=== PATIENT | female | born 1950 | race Caucasian/White ===

== ENCOUNTER 2021-02-13 14:06 | Inpatient (IN) ==
[2021-02-13] MEDS ORDERED: *HR* Dextrose 50 % in Water (Vial) 50 ML VIAL ONE (15:31)
[2021-02-13] MEDS ORDERED: *HR* Dextrose 50 % in Water (Vial) 50 ML VIAL IVP PRN (15:34)
[2021-02-13 16:01] LABS: Basophils # 0.1 K/mcL (0.0-0.2); Basophils % 0.8 %; Eosinophils # 0.3 K/mcL (0.0-0.6); Eosinophils % 2.9 %; Hematocrit 37.2 % (35.3-44.9); Hemoglobin 11.4 g/dL (11.5-15.4); Immature Granulocytes % 0.3 % (0-4); Lymphocytes # 0.4 K/mcL (0.6-4.6); Lymphocytes % 4.6 %; Mean Corpuscular HGB Conc 30.6 g/dL (31.6-35.5); Mean Corpuscular Volume 94.7 fL (83.0-100.0); Mean Platelet Volume 9.5 fL (9.4-12.4); Monocytes # 1.3 K/mcL (0.0-1.3); Neutrophils # 7.2 K/mcL (1.6-8.9); Platelet Count 322 K/mcL (140-400); Red Blood Count 3.93 M/mcL (3.82-4.97); Red Cell Distribution Width 15.8 % (11.5-14.5); Segmented Neutrophils % 77.4 %; White Blood Count 9.3 K/mcL (4.3-11.1)
[2021-02-13 16:12] LABS: Bilirubin,Urine Negative (Negative); Blood,Urine Negative (Negative); Clarity,Urine Clear (Clear); Color,Urine Yellow (Yellow); Glucose,Urine (UA) Normal (Normal); Ketones,Urine Negative (Negative); Leukocyte Esterase,Urine Negative (Negative); Nitrite,Urine Negative (Negative); Protein,Urine Negative (Neg-Trace); Specific Gravity,Urine 1.013 (1.010-1.025); Urobilinogen,Urine Normal (Normal)
[2021-02-13 16:17] LABS: Albumin 3.3 g/dL (3.5-5.7); Albumin/Globulin Ratio 0.8 (1.1-2.2); Bilirubin,Direct 0.6 mg/dL (0.0-0.2); Bilirubin,Indirect 0.5 mg/dL (0.0-1.0); Bilirubin,Total 1.1 mg/dL (0.3-1.0); Calcium 8.7 mg/dL (8.6-10.3); Globulin 4.1 g/dL (2.4-3.5); Total Protein 7.4 g/dL (6.4-8.9)
[2021-02-13] MEDS ORDERED: Vancomycin (wt based) 1,000 MG VIAL IVPB STA (18:29)
[2021-02-13] MEDS ORDERED: Piperacillin/Tazobactam 3.375 GM in 0.9 % Sodium Chloride Mini Bag 100 ML IVP ONE (18:30)
[2021-02-13] MEDS ORDERED: Vancomycin 2,000 MG/520 ML IV.SOLN IVPB ONE (18:37)
[2021-02-13] MEDS ORDERED: Naloxone 0.4 MG/ML INJ IVP PRN (21:21)
[2021-02-13 22:15] LABS: Phosphorous 4.4 mg/dL (2.7-4.5)
[2021-02-13] MEDS ORDERED: Dextrose Gel 15 GM/37.5 ML TUBE PO PRN ×2 (22:37)
[2021-02-13] MEDS ORDERED: D5% in Water 1,000 ML IVC PRN (22:37)
[2021-02-13] MEDS ORDERED: Insulin DETEMIR 100 UNIT/ML X5UNITS SUBQ SCH (22:45)
[2021-02-13] MEDS: *HR* Heparin 5,000 UNIT/ML VIAL SQ SCH (23:06)
[2021-02-13] MEDS: Furosemide 40 MG/4 ML VIAL IVP SCH (23:07)
[2021-02-14] MEDS: Insulin LISPRO 300 UNITS/3 ML VIAL SUBQ SCH ×4 (00:32→16:59)
[2021-02-14 04:06] LABS: Bilirubin,Urine Negative (Negative); Blood,Urine Moderate (Negative); Clarity,Urine Clear (Clear); Color,Urine Light-Yellow (Yellow); Glucose,Urine (UA) Normal (Normal); Ketones,Urine Negative (Negative); Leukocyte Esterase,Urine Negative (Negative); Nitrite,Urine Negative (Negative); Protein,Urine Trace mg/dL (Neg-Trace); Specific Gravity,Urine 1.013 (1.010-1.025); Urobilinogen,Urine Normal (Normal)
[2021-02-14 04:19] LABS: Sodium, Urine 44.5 mEq/L
[2021-02-14] MEDS: *HR* Heparin 5,000 UNIT/ML VIAL SQ SCH (05:37)
[2021-02-14 05:46] LABS: Basophils % 0.4 %; Eosinophils # 0.2 K/mcL (0.0-0.6); Eosinophils % 2.2 %; Hematocrit 34.8 % (35.3-44.9); Hemoglobin 11.2 g/dL (11.5-15.4); Immature Granulocytes % 0.3 % (0-4); Lymphocytes # 0.4 K/mcL (0.6-4.6); Lymphocytes % 3.6 %; Mean Corpuscular HGB Conc 32.2 g/dL (31.6-35.5); Mean Corpuscular Hemoglobin 29.9 pg (28.0-33.3); Mean Corpuscular Volume 92.8 fL (83.0-100.0); Mean Platelet Volume 9.3 fL (9.4-12.4); Monocytes # 1.3 K/mcL (0.0-1.3); Monocytes % 13.1 %; Neutrophils # 7.7 K/mcL (1.6-8.9); Platelet Count 296 K/mcL (140-400); Red Blood Count 3.75 M/mcL (3.82-4.97); Red Cell Distribution Width 15.9 % (11.5-14.5); Segmented Neutrophils % 80.4 %; White Blood Count 9.6 K/mcL (4.3-11.1)
[2021-02-14] MEDS: *HR* Dextrose 50 % in Water (Vial) 50 ML VIAL IVP PRN ×2 (05:56→12:01)
[2021-02-14 06:19] LABS: Albumin 3.1 g/dL (3.5-5.7); Albumin/Globulin Ratio 0.8 (1.1-2.2); Bilirubin,Total 1.1 mg/dL (0.3-1.0); Calcium 8.5 mg/dL (8.6-10.3); Globulin 3.8 g/dL (2.4-3.5); Potassium 3.8 mEq/L (3.5-5.1); Total Protein 6.9 g/dL (6.4-8.9)
[2021-02-14] MEDS: Furosemide 40 MG/4 ML VIAL IVP SCH ×2 (07:56→17:35)
[2021-02-14] MEDS ORDERED: Perflutren Lipid Microsphere 1.3 ML in 0.9 % Sodium Chloride 8.7 ML IVP PRN (08:13)
[2021-02-14] MEDS: amLODIPine 5 MG TABLET PO SCH (15:27)
[2021-02-14] MEDS ORDERED: *HR* Heparin 5,000 UNIT/ML VIAL IVP PRN ×2 (17:01)
[2021-02-14] MEDS ORDERED: Heparin 25,000UNIT/250ML 1/2NS 25,000 UNIT/250 ML IV.SOLN IVC SCH (17:15)
[2021-02-14] MEDS: Heparin 25,000UNIT/250ML 1/2NS 25,000 UNIT/250 ML IV.SOLN IVC SCH (17:35)
[2021-02-14] MEDS ORDERED: *HR* Rivaroxaban 10 MG TABLET PO SCH (18:00)
[2021-02-14] MEDS: cloNIDine HCL 0.1 MG TABLET PO SCH (20:14)
[2021-02-14] MEDS ORDERED: Insulin DETEMIR 100 UNIT/ML X5UNITS SUBQ SCH (21:00)
[2021-02-15 01:39] LABS: Basophils # 0.1 K/mcL (0.0-0.2); Basophils % 0.5 %; Eosinophils # 0.2 K/mcL (0.0-0.6); Eosinophils % 2.1 %; Hematocrit 33.9 % (35.3-44.9); Hemoglobin 10.5 g/dL (11.5-15.4); Immature Granulocytes % 0.6 % (0-4); Lymphocytes # 0.4 K/mcL (0.6-4.6); Lymphocytes % 4.7 %; Mean Corpuscular Hemoglobin 29.4 pg (28.0-33.3); Mean Platelet Volume 9.4 fL (9.4-12.4); Monocytes # 1.3 K/mcL (0.0-1.3); Monocytes % 13.4 %; Neutrophils # 7.3 K/mcL (1.6-8.9); Platelet Count 242 K/mcL (140-400); Red Blood Count 3.57 M/mcL (3.82-4.97); Red Cell Distribution Width 15.9 % (11.5-14.5); Segmented Neutrophils % 78.7 %; White Blood Count 9.3 K/mcL (4.3-11.1)
[2021-02-15 01:52] LABS: Heparin anti-factor XA UFH 1.72 IU/mL (0.30-0.70)
[2021-02-15 02:05] LABS: Albumin/Globulin Ratio 0.8 (1.1-2.2); Bilirubin,Direct 0.4 mg/dL (0.0-0.2); Bilirubin,Indirect 0.6 mg/dL (0.0-1.0); Calcium 8.3 mg/dL (8.6-10.3); Globulin 3.7 g/dL (2.4-3.5); Potassium 3.5 mEq/L (3.5-5.1); Total Protein 6.7 g/dL (6.4-8.9)
[2021-02-15 02:50] LABS: Activated Partial Thrombo Time > 360.0 Seconds (26.0-36.0)
[2021-02-15] MEDS: Furosemide 40 MG/4 ML VIAL IVP SCH ×2 (08:47→16:38)
[2021-02-15] MEDS: amLODIPine 5 MG TABLET PO SCH (08:47)
[2021-02-15] MEDS: Magnesium Oxide 400 MG TABLET PO SCH (08:48)
[2021-02-15] MEDS: Insulin LISPRO 300 UNITS/3 ML VIAL SUBQ SCH ×3 (08:48→16:34)
[2021-02-15] MEDS ORDERED: FELODIPINE 10 MG PO SCH (09:00)
[2021-02-15] MEDS: Simethicone 80 MG TAB.CHEW PO PRN ×2 (11:48→20:14)
[2021-02-15] MEDS: Heparin 25,000UNIT/250ML 1/2NS 25,000 UNIT/250 ML IV.SOLN IVC SCH ×2 (11:55→15:20)
[2021-02-15] MEDS: *HR* Rivaroxaban 10 MG TABLET PO SCH (16:38)
[2021-02-15] MEDS: Ondansetron 4 MG/2 ML VIAL IVP PRN (17:45)
[2021-02-15] MEDS: Doxycycline 100 MG CAPSULE PO SCH (20:14)
[2021-02-15] MEDS: cloNIDine HCL 0.1 MG TABLET PO SCH (20:14)
[2021-02-15] MEDS: Nystatin POWDER 30 GM BOTTLE TP SCH (23:28)
[2021-02-16 01:04] LABS: Albumin 2.9 g/dL (3.5-5.7); Albumin/Globulin Ratio 0.8 (1.1-2.2); Bilirubin,Direct 0.3 mg/dL (0.0-0.2); Bilirubin,Indirect 0.7 mg/dL (0.0-1.0); Calcium 8.4 mg/dL (8.6-10.3); Globulin 3.7 g/dL (2.4-3.5); Potassium 3.3 mEq/L (3.5-5.1); Total Protein 6.6 g/dL (6.4-8.9)
[2021-02-16 01:11] LABS: Basophils # 0.1 K/mcL (0.0-0.2); Basophils % 0.6 %; Eosinophils # 0.1 K/mcL (0.0-0.6); Eosinophils % 1.2 %; Hematocrit 33.4 % (35.3-44.9); Hemoglobin 10.3 g/dL (11.5-15.4); Immature Granulocytes % 0.7 % (0-4); Lymphocytes # 0.4 K/mcL (0.6-4.6); Lymphocytes % 5.2 %; Mean Corpuscular HGB Conc 30.8 g/dL (31.6-35.5); Mean Corpuscular Hemoglobin 29.2 pg (28.0-33.3); Mean Corpuscular Volume 94.6 fL (83.0-100.0); Mean Platelet Volume 9.4 fL (9.4-12.4); Monocytes % 12.7 %; Neutrophils # 6.5 K/mcL (1.6-8.9); Platelet Count 225 K/mcL (140-400); Red Blood Count 3.53 M/mcL (3.82-4.97); Red Cell Distribution Width 15.9 % (11.5-14.5); Segmented Neutrophils % 79.6 %; White Blood Count 8.1 K/mcL (4.3-11.1)
[2021-02-16] MEDS: Doxycycline 100 MG CAPSULE PO SCH ×2 (09:05→19:53)
[2021-02-16] MEDS: amLODIPine 5 MG TABLET PO SCH (09:05)
[2021-02-16] MEDS: Insulin LISPRO 300 UNITS/3 ML VIAL SUBQ SCH ×3 (09:05→17:17)
[2021-02-16] MEDS: Magnesium Oxide 400 MG TABLET PO SCH (09:05)
[2021-02-16] MEDS: Ondansetron 4 MG/2 ML VIAL IVP PRN ×2 (09:06→21:58)
[2021-02-16] MEDS: Furosemide 40 MG/4 ML VIAL IVP SCH ×2 (09:06→17:17)
[2021-02-16] MEDS: Nystatin POWDER 30 GM BOTTLE TP SCH ×2 (09:07→19:54)
[2021-02-16] MEDS: *HR* Rivaroxaban 10 MG TABLET PO SCH (17:17)
[2021-02-16] MEDS: Simethicone 80 MG TAB.CHEW PO PRN (17:23)
[2021-02-16] MEDS: cloNIDine HCL 0.1 MG TABLET PO SCH (19:53)
[2021-02-17 01:24] LABS: Basophils # 0.1 K/mcL (0.0-0.2); Basophils % 0.6 %; Eosinophils # 0.2 K/mcL (0.0-0.6); Eosinophils % 2.2 %; Hematocrit 34.6 % (35.3-44.9); Hemoglobin 10.5 g/dL (11.5-15.4); Immature Granulocytes % 0.8 % (0-4); Lymphocytes # 0.5 K/mcL (0.6-4.6); Lymphocytes % 5.5 %; Mean Corpuscular HGB Conc 30.3 g/dL (31.6-35.5); Mean Corpuscular Hemoglobin 29.1 pg (28.0-33.3); Mean Corpuscular Volume 95.8 fL (83.0-100.0); Mean Platelet Volume 8.9 fL (9.4-12.4); Monocytes # 1.1 K/mcL (0.0-1.3); Monocytes % 12.8 %; Platelet Count 220 K/mcL (140-400); Red Blood Count 3.61 M/mcL (3.82-4.97); Red Cell Distribution Width 15.9 % (11.5-14.5); Segmented Neutrophils % 78.1 %; White Blood Count 8.9 K/mcL (4.3-11.1)
[2021-02-17 01:44] LABS: Albumin/Globulin Ratio 0.8 (1.1-2.2); Bilirubin,Direct 0.3 mg/dL (0.0-0.2); Bilirubin,Indirect 0.6 mg/dL (0.0-1.0); Bilirubin,Total 0.9 mg/dL (0.3-1.0); Calcium 8.6 mg/dL (8.6-10.3); Globulin 3.8 g/dL (2.4-3.5); Potassium 3.3 mEq/L (3.5-5.1); Total Protein 6.8 g/dL (6.4-8.9)
[2021-02-17] MEDS: Doxycycline 100 MG CAPSULE PO SCH ×2 (08:09→19:32)
[2021-02-17] MEDS: Simethicone 80 MG TAB.CHEW PO PRN (08:09)
[2021-02-17] MEDS: Magnesium Oxide 400 MG TABLET PO SCH (08:09)
[2021-02-17] MEDS: Furosemide 40 MG/4 ML VIAL IVP SCH ×2 (08:10→17:04)
[2021-02-17] MEDS: Ondansetron 4 MG/2 ML VIAL IVP PRN (08:10)
[2021-02-17] MEDS: Insulin LISPRO 300 UNITS/3 ML VIAL SUBQ SCH ×3 (08:10→17:05)
[2021-02-17] MEDS: Nystatin POWDER 30 GM BOTTLE TP SCH ×2 (08:19→19:33)
[2021-02-17] MEDS: Acetaminophen 325 MG TABLET PO PRN (11:35)
[2021-02-17] MEDS: *HR* Rivaroxaban 10 MG TABLET PO SCH (17:04)
[2021-02-17] MEDS: *HR* OxyCODONE Immed Rel 5 MG TABLET PO PRN (17:04)
[2021-02-17] MEDS: cloNIDine HCL 0.1 MG TABLET PO SCH (19:32)
[2021-02-18 04:07] LABS: Basophils # 0.1 K/mcL (0.0-0.2); Basophils % 0.7 %; Eosinophils # 0.4 K/mcL (0.0-0.6); Eosinophils % 4.4 %; Hematocrit 35.1 % (35.3-44.9); Hemoglobin 10.6 g/dL (11.5-15.4); Immature Granulocytes % 1.2 % (0-4); Lymphocytes # 0.5 K/mcL (0.6-4.6); Lymphocytes % 5.7 %; Mean Corpuscular HGB Conc 30.2 g/dL (31.6-35.5); Mean Corpuscular Volume 95.9 fL (83.0-100.0); Mean Platelet Volume 9.2 fL (9.4-12.4); Monocytes % 12.3 %; Neutrophils # 6.4 K/mcL (1.6-8.9); Platelet Count 192 K/mcL (140-400); Red Blood Count 3.66 M/mcL (3.82-4.97); Red Cell Distribution Width 15.9 % (11.5-14.5); Segmented Neutrophils % 75.7 %; White Blood Count 8.4 K/mcL (4.3-11.1)
[2021-02-18 04:27] LABS: Albumin/Globulin Ratio 0.8 (1.1-2.2); Bilirubin,Direct 0.4 mg/dL (0.0-0.2); Bilirubin,Indirect 0.6 mg/dL (0.0-1.0); Calcium 8.8 mg/dL (8.6-10.3); Potassium 3.5 mEq/L (3.5-5.1)
[2021-02-18] MEDS: Magnesium Oxide 400 MG TABLET PO SCH (08:39)
[2021-02-18] MEDS: Doxycycline 100 MG CAPSULE PO SCH ×2 (08:40→20:34)
[2021-02-18] MEDS: Furosemide 40 MG/4 ML VIAL IVP SCH ×2 (08:40→19:52)
[2021-02-18] MEDS: Insulin LISPRO 300 UNITS/3 ML VIAL SUBQ SCH ×3 (08:40→19:53)
[2021-02-18] MEDS: Nystatin POWDER 30 GM BOTTLE TP SCH (08:45)
[2021-02-18] MEDS: *HR* OxyCODONE Immed Rel 5 MG TABLET PO PRN ×2 (08:48→17:54)
[2021-02-18] MEDS ORDERED: 0.9 % Sodium Chloride 250 ML IVC PRN (08:48)
[2021-02-18] MEDS ORDERED: *HR* Heparin 10,000 UNIT/10 ML VIAL IV PRN (08:48)
[2021-02-18] MEDS ORDERED: 0.9 % Sodium Chloride 1,000 ML PRIME SCH (09:00)
[2021-02-18 11:25] LABS: Hepatitis B Surface Antibody < 3.10 mIU/mL
[2021-02-18 11:35] LABS: Hepatitis B Surface Antigen Nonreactive (Nonreactive)
[2021-02-18 12:03] LABS: Hepatitis C Virus Antibody Nonreactive (Nonreactive)
[2021-02-18 12:05] LABS: Hepatitis A Antibody IgM Nonreactive (Nonreactive); Hepatitis B Core IgM Nonreactive (Nonreactive)
[2021-02-18] MEDS ORDERED: Lidocaine/EPI 1:100k 1% 50 ML VIAL ONE (15:10)
[2021-02-18] MEDS ORDERED: Heparin 1,000 UNITS/500 mL 500 ML ONE (15:10)
[2021-02-18] MEDS ORDERED: *HR* Heparin 5,000 UNIT/ML VIAL ONE (15:44)
[2021-02-18] MEDS ORDERED: *HR* Rivaroxaban 15 MG TABLET PO SCH (17:00)
[2021-02-18] MEDS: Insulin DETEMIR 100 UNIT/ML X5UNITS SUBQ SCH (20:33)
[2021-02-18] MEDS: cloNIDine HCL 0.1 MG TABLET PO SCH (20:34)
[2021-02-18] MEDS: Acetaminophen 325 MG TABLET PO PRN (20:39)
[2021-02-19] MEDS: Nystatin POWDER 30 GM BOTTLE TP SCH ×3 (01:09→20:10)
[2021-02-19] MEDS: *HR* OxyCODONE Immed Rel 5 MG TABLET PO PRN (05:34)
[2021-02-19 06:15] LABS: Calcium 8.9 mg/dL (8.6-10.3); Potassium 3.6 mEq/L (3.5-5.1)
[2021-02-19] MEDS ORDERED: *HR* Heparin 10,000 UNIT/10 ML VIAL IV PRN (07:20)
[2021-02-19] MEDS ORDERED: 0.9 % Sodium Chloride 250 ML IVC PRN (07:20)
[2021-02-19] MEDS ORDERED: 0.9 % Sodium Chloride 1,000 ML PRIME SCH (07:30)
[2021-02-19] MEDS: Doxycycline 100 MG CAPSULE PO SCH ×2 (08:19→20:02)
[2021-02-19] MEDS: Insulin LISPRO 300 UNITS/3 ML VIAL SUBQ SCH ×3 (08:19→18:29)
[2021-02-19] MEDS: Furosemide 40 MG/4 ML VIAL IVP SCH ×2 (08:19→18:29)
[2021-02-19] MEDS: Magnesium Oxide 400 MG TABLET PO SCH (08:19)
[2021-02-19] MEDS: cloNIDine HCL 0.1 MG TABLET PO SCH (20:02)
[2021-02-19] MEDS: Apixaban 5 MG TABLET PO SCH (20:02)
[2021-02-19] MEDS: Insulin DETEMIR 100 UNIT/ML X5UNITS SUBQ SCH (20:10)
[2021-02-19] MEDS: Simethicone 80 MG TAB.CHEW PO PRN (21:55)
[2021-02-20 05:40] LABS: Basophils # 0.1 K/mcL (0.0-0.2); Basophils % 0.7 %; Eosinophils # 0.3 K/mcL (0.0-0.6); Hematocrit 34.9 % (35.3-44.9); Hemoglobin 10.5 g/dL (11.5-15.4); Immature Granulocytes % 0.4 % (0-4); Lymphocytes # 0.6 K/mcL (0.6-4.6); Lymphocytes % 6.3 %; Mean Corpuscular HGB Conc 30.1 g/dL (31.6-35.5); Mean Corpuscular Hemoglobin 29.2 pg (28.0-33.3); Mean Corpuscular Volume 97.2 fL (83.0-100.0); Mean Platelet Volume 9.6 fL (9.4-12.4); Monocytes % 10.2 %; Neutrophils # 7.8 K/mcL (1.6-8.9); Platelet Count 158 K/mcL (140-400); Red Blood Count 3.59 M/mcL (3.82-4.97); Segmented Neutrophils % 79.4 %; White Blood Count 9.8 K/mcL (4.3-11.1)
[2021-02-20 06:01] LABS: Potassium 3.7 mEq/L (3.5-5.1)
[2021-02-20] MEDS: Insulin LISPRO 300 UNITS/3 ML VIAL SUBQ SCH ×4 (08:09→16:49)
[2021-02-20] MEDS ORDERED: *HR* Heparin 10,000 UNIT/10 ML VIAL IV PRN (08:13)
[2021-02-20] MEDS ORDERED: 0.9 % Sodium Chloride 250 ML IVC PRN (08:13)
[2021-02-20] MEDS ORDERED: 0.9 % Sodium Chloride 1,000 ML PRIME SCH (08:15)
[2021-02-20] MEDS: Furosemide 40 MG/4 ML VIAL IVP SCH ×2 (09:13→16:48)
[2021-02-20] MEDS: Magnesium Oxide 400 MG TABLET PO SCH (09:14)
[2021-02-20] MEDS: Apixaban 5 MG TABLET PO SCH ×2 (09:14→20:12)
[2021-02-20] MEDS: Nystatin POWDER 30 GM BOTTLE TP SCH ×2 (09:14→20:24)
[2021-02-20] MEDS: Doxycycline 100 MG CAPSULE PO SCH ×2 (09:14→20:12)
[2021-02-20] MEDS: Simethicone 80 MG TAB.CHEW PO PRN (20:11)
[2021-02-20] MEDS: cloNIDine HCL 0.1 MG TABLET PO SCH (20:12)
[2021-02-20] MEDS: Insulin DETEMIR 100 UNIT/ML X5UNITS SUBQ SCH (20:23)
[2021-02-21 04:07] LABS: Hematocrit 35.3 % (35.3-44.9); Hemoglobin 10.4 g/dL (11.5-15.4); Mean Corpuscular HGB Conc 29.5 g/dL (31.6-35.5); Mean Corpuscular Hemoglobin 28.7 pg (28.0-33.3); Mean Corpuscular Volume 97.5 fL (83.0-100.0); Mean Platelet Volume 9.7 fL (9.4-12.4); Platelet Count 161 K/mcL (140-400); Red Blood Count 3.62 M/mcL (3.82-4.97); Red Cell Distribution Width 16.3 % (11.5-14.5); White Blood Count 9.3 K/mcL (4.3-11.1)
[2021-02-21 04:26] LABS: Calcium 8.8 mg/dL (8.6-10.3); Potassium 3.9 mEq/L (3.5-5.1)
[2021-02-21] MEDS: Magnesium Oxide 400 MG TABLET PO SCH (08:08)
[2021-02-21] MEDS: Doxycycline 100 MG CAPSULE PO SCH ×2 (08:08→22:11)
[2021-02-21] MEDS: Apixaban 5 MG TABLET PO SCH ×2 (08:08→22:11)
[2021-02-21] MEDS: Furosemide 40 MG/4 ML VIAL IVP SCH ×2 (08:09→17:31)
[2021-02-21] MEDS: Nystatin POWDER 30 GM BOTTLE TP SCH ×2 (08:09→22:12)
[2021-02-21] MEDS: Insulin LISPRO 300 UNITS/3 ML VIAL SUBQ SCH ×3 (08:09→17:31)
[2021-02-21] MEDS ORDERED: Acetaminophen 325 MG TABLET PO PRN (11:22)
[2021-02-21] MEDS: *HR* OxyCODONE Immed Rel 5 MG TABLET PO PRN ×2 (12:28→22:12)
[2021-02-21] MEDS: Simethicone 80 MG TAB.CHEW PO PRN (22:12)
[2021-02-21] MEDS: cloNIDine HCL 0.1 MG TABLET PO SCH (22:12)
[2021-02-21] MEDS: Insulin DETEMIR 100 UNIT/ML X5UNITS SUBQ SCH (22:19)
[2021-02-22 06:49] LABS: Hematocrit 35.7 % (35.3-44.9); Hemoglobin 10.6 g/dL (11.5-15.4); Mean Corpuscular HGB Conc 29.7 g/dL (31.6-35.5); Mean Corpuscular Hemoglobin 28.9 pg (28.0-33.3); Mean Corpuscular Volume 97.3 fL (83.0-100.0); Mean Platelet Volume 9.4 fL (9.4-12.4); Platelet Count 162 K/mcL (140-400); Red Blood Count 3.67 M/mcL (3.82-4.97); Red Cell Distribution Width 16.1 % (11.5-14.5); White Blood Count 8.7 K/mcL (4.3-11.1)
[2021-02-22 07:03] LABS: Potassium 3.8 mEq/L (3.5-5.1)
[2021-02-22] MEDS ORDERED: 0.9 % Sodium Chloride 250 ML IVC PRN (07:16)
[2021-02-22] MEDS ORDERED: *HR* Heparin 10,000 UNIT/10 ML VIAL IV PRN (07:16)
[2021-02-22] MEDS: Doxycycline 100 MG CAPSULE PO SCH ×2 (07:56→20:38)
[2021-02-22] MEDS: Magnesium Oxide 400 MG TABLET PO SCH (07:56)
[2021-02-22] MEDS: Nystatin POWDER 30 GM BOTTLE TP SCH ×2 (07:57→20:41)
[2021-02-22] MEDS: Furosemide 40 MG/4 ML VIAL IVP SCH (07:57)
[2021-02-22] MEDS: Apixaban 5 MG TABLET PO SCH ×2 (07:57→20:38)
[2021-02-22] MEDS: Insulin LISPRO 300 UNITS/3 ML VIAL SUBQ SCH ×3 (07:57→18:03)
[2021-02-22] MEDS: *HR* OxyCODONE Immed Rel 5 MG TABLET PO PRN ×2 (08:02→18:03)
[2021-02-22] MEDS: Simethicone 80 MG TAB.CHEW PO PRN (08:08)
[2021-02-22] MEDS: Torsemide 20 MG TABLET PO SCH (18:03)
[2021-02-22] MEDS: cloNIDine HCL 0.1 MG TABLET PO SCH (20:38)
[2021-02-22] MEDS: Insulin DETEMIR 100 UNIT/ML X5UNITS SUBQ SCH (20:38)
[2021-02-23 03:13] LABS: Hematocrit 33.9 % (35.3-44.9); Hemoglobin 10.6 g/dL (11.5-15.4); Mean Corpuscular HGB Conc 31.3 g/dL (31.6-35.5); Mean Corpuscular Hemoglobin 30.1 pg (28.0-33.3); Mean Corpuscular Volume 96.3 fL (83.0-100.0); Mean Platelet Volume 9.8 fL (9.4-12.4); Platelet Count 147 K/mcL (140-400); Red Blood Count 3.52 M/mcL (3.82-4.97); Red Cell Distribution Width 16.2 % (11.5-14.5); White Blood Count 7.9 K/mcL (4.3-11.1)
[2021-02-23 03:34] LABS: Calcium 8.8 mg/dL (8.6-10.3); Potassium 3.8 mEq/L (3.5-5.1)
[2021-02-23] MEDS: Insulin LISPRO 300 UNITS/3 ML VIAL SUBQ SCH ×3 (07:47→16:58)
[2021-02-23] MEDS: Doxycycline 100 MG CAPSULE PO SCH ×2 (07:53→21:08)
[2021-02-23] MEDS: Magnesium Oxide 400 MG TABLET PO SCH (07:53)
[2021-02-23] MEDS: metOLazone 2.5 MG TABLET PO SCH (07:53)
[2021-02-23] MEDS: Apixaban 5 MG TABLET PO SCH ×2 (07:53→21:08)
[2021-02-23] MEDS: Torsemide 20 MG TABLET PO SCH ×2 (07:53→16:58)
[2021-02-23] MEDS: *HR* OxyCODONE Immed Rel 5 MG TABLET PO PRN (12:03)
[2021-02-23] MEDS: Nystatin POWDER 30 GM BOTTLE TP SCH (13:13)
[2021-02-23] MEDS: cloNIDine HCL 0.1 MG TABLET PO SCH (21:08)
[2021-02-23] MEDS: Insulin DETEMIR 100 UNIT/ML X5UNITS SUBQ SCH (21:09)
[2021-02-23] MEDS: Simethicone 80 MG TAB.CHEW PO PRN (21:15)
[2021-02-24 05:02] LABS: Hematocrit 32.5 % (35.3-44.9); Hemoglobin 10.2 g/dL (11.5-15.4); Mean Corpuscular HGB Conc 31.4 g/dL (31.6-35.5); Mean Corpuscular Hemoglobin 29.6 pg (28.0-33.3); Mean Corpuscular Volume 94.2 fL (83.0-100.0); Mean Platelet Volume 10.1 fL (9.4-12.4); Platelet Count 166 K/mcL (140-400); Red Blood Count 3.45 M/mcL (3.82-4.97); Red Cell Distribution Width 16.1 % (11.5-14.5); White Blood Count 6.4 K/mcL (4.3-11.1)
[2021-02-24 05:16] LABS: Calcium 8.9 mg/dL (8.6-10.3); Potassium 3.5 mEq/L (3.5-5.1)
[2021-02-24] MEDS: Nystatin POWDER 30 GM BOTTLE TP SCH ×3 (07:44→20:51)
[2021-02-24] MEDS: Magnesium Oxide 400 MG TABLET PO SCH (08:00)
[2021-02-24] MEDS: Doxycycline 100 MG CAPSULE PO SCH ×2 (08:00→20:50)
[2021-02-24] MEDS: Insulin LISPRO 300 UNITS/3 ML VIAL SUBQ SCH ×3 (08:00→15:45)
[2021-02-24] MEDS: metOLazone 2.5 MG TABLET PO SCH (08:00)
[2021-02-24] MEDS: Torsemide 20 MG TABLET PO SCH ×2 (08:00→15:41)
[2021-02-24] MEDS: Apixaban 5 MG TABLET PO SCH ×2 (08:00→20:50)
[2021-02-24] MEDS: Simethicone 80 MG TAB.CHEW PO PRN (18:50)
[2021-02-24] MEDS: cloNIDine HCL 0.1 MG TABLET PO SCH (20:50)
[2021-02-24] MEDS: Insulin DETEMIR 100 UNIT/ML X5UNITS SUBQ SCH (20:51)
[2021-02-25 03:47] LABS: Hematocrit 32.3 % (35.3-44.9); Hemoglobin 9.9 g/dL (11.5-15.4); Mean Corpuscular HGB Conc 30.7 g/dL (31.6-35.5); Mean Corpuscular Hemoglobin 29.1 pg (28.0-33.3); Mean Platelet Volume 10.2 fL (9.4-12.4); Platelet Count 162 K/mcL (140-400); Red Cell Distribution Width 16.1 % (11.5-14.5); White Blood Count 6.5 K/mcL (4.3-11.1)
[2021-02-25 03:54] LABS: Calcium 8.8 mg/dL (8.6-10.3); Potassium 3.3 mEq/L (3.5-5.1)
[2021-02-25] MEDS: Insulin LISPRO 300 UNITS/3 ML VIAL SUBQ SCH ×3 (07:42→16:46)
[2021-02-25] MEDS: Magnesium Oxide 400 MG TABLET PO SCH (07:42)
[2021-02-25] MEDS: Apixaban 5 MG TABLET PO SCH (07:42)
[2021-02-25] MEDS: Doxycycline 100 MG CAPSULE PO SCH (07:43)
[2021-02-25] MEDS: Nystatin POWDER 30 GM BOTTLE TP SCH (07:43)
[2021-02-25] MEDS: Torsemide 20 MG TABLET PO SCH ×2 (07:43→16:47)
[2021-02-25] MEDS: *HR* OxyCODONE Immed Rel 5 MG TABLET PO PRN (15:12)
[2021-02-25] MEDS: Simethicone 80 MG TAB.CHEW PO PRN (15:12)
[2021-02-25 15:34] LABS: Adenovirus Not Detected (Not Detect); Bordetella Pertussis Not Detected (Not Detect); Chlamydophila pneumoniae Not Detected (Not Detect); Coronavirus 229E Not Detected (Not Detect); Coronavirus HKU1 Not Detected (Not Detect); Coronavirus NL63 Not Detected (Not Detect); Coronavirus OC43 Not Detected (Not Detect); Human Metapneumovirus Not Detected (Not Detect); Human Rhinovirus/Enterovirus Not Detected (Not Detect); Influenza A Subtype 2009 H1 Not Detected (Not Detect); Influenza B Not Detected (Not Detect); Mycoplasma pneumoniae Not Detected (Not Detect); Parainfluenza Virus 1 Not Detected (Not Detect); Parainfluenza Virus 2 Not Detected (Not Detect); Parainfluenza Virus 3 Not Detected (Not Detect); Parainfluenza Virus 4 Not Detected (Not Detect); Respiratory Syncytial Virus Not Detected (Not Detect); SARS-CoV-2 Not Detected (Not Detect)
[2021-02-25 16:14] VITALS: BP 105/69
== END 2021-02-25 18:14 | DRG 291 ==
LOC: EMEROOARM 14:06 → 2ANU 14:06 → SUATTDRO 19:20 → 2ANU 20:51 → SUATTDRO 02-14 19:02
PROVIDERS: ADMIT Internal Medicine; ATTEND Family Medicine

== ENCOUNTER 2021-03-13 18:38 | Inpatient (IN) ==
[2021-03-13 19:11] LABS: Basophils % 0.4 %; Eosinophils # 0.3 K/mcL (0.0-0.6); Eosinophils % 3.3 %; Hematocrit 35.5 % (35.3-44.9); Hemoglobin 10.9 g/dL (11.5-15.4); Immature Granulocytes % 0.5 % (0-4); Lymphocytes # 0.8 K/mcL (0.6-4.6); Lymphocytes % 8.6 %; Mean Corpuscular HGB Conc 30.7 g/dL (31.6-35.5); Mean Corpuscular Volume 94.4 fL (83.0-100.0); Mean Platelet Volume 9.6 fL (9.4-12.4); Monocytes % 10.6 %; Platelet Count 224 K/mcL (140-400); Red Blood Count 3.76 M/mcL (3.82-4.97); Red Cell Distribution Width 16.8 % (11.5-14.5); Segmented Neutrophils % 76.6 %; White Blood Count 9.2 K/mcL (4.3-11.1)
[2021-03-13 19:40] LABS: Albumin/Globulin Ratio 0.7 (1.1-2.2); Bilirubin,Total 0.9 mg/dL (0.3-1.0); Calcium 9.3 mg/dL (8.6-10.3); Globulin 4.3 g/dL (2.4-3.5); Potassium 3.7 mEq/L (3.5-5.1); Total Protein 7.3 g/dL (6.4-8.9)
[2021-03-13 20:11] LABS: Troponin I 0.04 ng/mL (< 0.04)
[2021-03-13 20:17] LABS: Thyroid Stimulating Hormone 3.334 mcIU/mL (0.340-5.600)
[2021-03-13 20:57] LABS: Bilirubin,Urine Negative (Negative); Blood,Urine Negative (Negative); Clarity,Urine Clear (Clear); Color,Urine Light-Yellow (Yellow); Glucose,Urine (UA) Normal (Normal); Ketones,Urine Negative (Negative); Leukocyte Esterase,Urine Negative (Negative); Nitrite,Urine Negative (Negative); Protein,Urine Negative (Neg-Trace); Specific Gravity,Urine 1.008 (1.010-1.025); Urobilinogen,Urine Normal (Normal)
[2021-03-13] MEDS ORDERED: *HR* Promethazine 25 MG/ML VIAL IM PRN (23:44)
[2021-03-13] MEDS ORDERED: Melatonin 3 MG TABLET PO PRN (23:44)
[2021-03-13] MEDS ORDERED: Naloxone 0.4 MG/ML INJ IVP PRN (23:44)
[2021-03-13] MEDS ORDERED: Ondansetron 4 MG/2 ML VIAL IVP PRN (23:44)
[2021-03-14] MEDS ORDERED: *HR* Dextrose 50 % in Water (Vial) 50 ML VIAL IVP PRN (00:32)
[2021-03-14] MEDS ORDERED: Dextrose Gel 15 GM/37.5 ML TUBE PO PRN (00:32)
[2021-03-14] MEDS ORDERED: D5% in Water 1,000 ML IVC PRN (00:32)
[2021-03-14] MEDS: cloNIDine HCL 0.1 MG TABLET PO SCH ×2 (00:57→20:25)
[2021-03-14] MEDS: *HR* Rivaroxaban 10 MG TABLET PO SCH (00:57)
[2021-03-14 01:34] LABS: Estimated Average Glucose 160 mg/dl; Hemoglobin A1C 7.2 %
[2021-03-14 01:39] LABS: Albumin 2.7 g/dL (3.5-5.7); Albumin/Globulin Ratio 0.7 (1.1-2.2); Bilirubin,Total 0.9 mg/dL (0.3-1.0); Calcium 8.9 mg/dL (8.6-10.3); Chol/HDL Ratio 4.7 (0-4.9); Globulin 3.7 g/dL (2.4-3.5); Potassium 3.6 mEq/L (3.5-5.1); Total Protein 6.4 g/dL (6.4-8.9)
[2021-03-14] MEDS ORDERED: Torsemide 20 MG TABLET PO SCH (08:00)
[2021-03-14] MEDS: Cholecalciferol (D-3) 1,000 UNIT (25MCG) TABLET PO SCH (08:14)
[2021-03-14] MEDS: Cyanocobalamin (B-12) 1,000 MCG TABLET PO SCH (08:15)
[2021-03-14] MEDS: Magnesium Oxide 400 MG TABLET PO SCH (08:15)
[2021-03-14] MEDS: Insulin LISPRO 300 UNITS/3 ML VIAL SUBQ SCH ×4 (08:16→20:20)
[2021-03-14] MEDS ORDERED: Bisacodyl 10 MG RECTAL SUPPOSITORY RC PRN (12:17)
[2021-03-14] MEDS ORDERED: MOM Conc 10 ML UD.LIQ PO PRN (12:17)
[2021-03-14] MEDS: Albumin 25% 25gram/100mL 25 GM/100 ML IV.SOLN IVPB SCH (17:49)
[2021-03-14] MEDS: Furosemide 40 MG/4 ML VIAL IVP SCH (20:24)
[2021-03-14] MEDS: Insulin DETEMIR 100 UNIT/ML X5UNITS SUBQ SCH (20:25)
[2021-03-14 20:40] LABS: Protein/Creatinine Ratio,Urine 0.09 mg/mg (0.00-0.20); Sodium, Urine 15.4 mEq/L
[2021-03-15 05:02] LABS: Hematocrit 32.2 % (35.3-44.9); Hemoglobin 9.7 g/dL (11.5-15.4); Mean Corpuscular HGB Conc 30.1 g/dL (31.6-35.5); Mean Corpuscular Volume 96.1 fL (83.0-100.0); Mean Platelet Volume 9.8 fL (9.4-12.4); Platelet Count 171 K/mcL (140-400); Red Blood Count 3.35 M/mcL (3.82-4.97); Red Cell Distribution Width 17.3 % (11.5-14.5); White Blood Count 7.2 K/mcL (4.3-11.1)
[2021-03-15 05:19] LABS: Calcium 9.3 mg/dL (8.6-10.3); Potassium 3.6 mEq/L (3.5-5.1)
[2021-03-15] MEDS: Albumin 25% 25gram/100mL 25 GM/100 ML IV.SOLN IVPB SCH ×2 (05:57→17:53)
[2021-03-15] MEDS: Furosemide 40 MG/4 ML VIAL IVP SCH (08:19)
[2021-03-15] MEDS: polyethylene glycoL 3350 17 GM POWD.PACK PO SCH (08:19)
[2021-03-15] MEDS: Cholecalciferol (D-3) 1,000 UNIT (25MCG) TABLET PO SCH (08:20)
[2021-03-15] MEDS: Magnesium Oxide 400 MG TABLET PO SCH (08:20)
[2021-03-15] MEDS: Famotidine 20 MG TABLET PO SCH (08:20)
[2021-03-15] MEDS: Insulin LISPRO 300 UNITS/3 ML VIAL SUBQ SCH ×4 (08:21→20:55)
[2021-03-15] MEDS: Cyanocobalamin (B-12) 1,000 MCG TABLET PO SCH (08:21)
[2021-03-15] MEDS ORDERED: CYANOCOBALAMIN 1000 MCG PO SCH (09:00)
[2021-03-15] MEDS ORDERED: [UNRECOGNIZED DRUG - OTHER] PO SCH (09:00)
[2021-03-15] MEDS: cloNIDine HCL 0.1 MG TABLET PO SCH (20:53)
[2021-03-15] MEDS: Insulin DETEMIR 100 UNIT/ML X5UNITS SUBQ SCH (20:56)
[2021-03-16 01:49] LABS: Albumin 3.4 g/dL (3.5-5.7); Bilirubin,Direct 0.5 mg/dL (0.0-0.2); Bilirubin,Indirect 0.9 mg/dL (0.0-1.0); Bilirubin,Total 1.4 mg/dL (0.3-1.0); Globulin 3.4 g/dL (2.4-3.5); Total Protein 6.8 g/dL (6.4-8.9)
[2021-03-16 01:51] LABS: Calcium 9.2 mg/dL (8.6-10.3); Potassium 3.6 mEq/L (3.5-5.1)
[2021-03-16] MEDS: Albumin 25% 25gram/100mL 25 GM/100 ML IV.SOLN IVPB SCH ×2 (06:24→16:39)
[2021-03-16] MEDS: Insulin LISPRO 300 UNITS/3 ML VIAL SUBQ SCH ×4 (08:05→20:43)
[2021-03-16] MEDS: Torsemide 20 MG TABLET PO SCH (08:08)
[2021-03-16] MEDS: Magnesium Oxide 400 MG TABLET PO SCH (08:08)
[2021-03-16] MEDS: Famotidine 20 MG TABLET PO SCH (08:09)
[2021-03-16] MEDS: Cyanocobalamin (B-12) 1,000 MCG TABLET PO SCH (08:09)
[2021-03-16] MEDS: polyethylene glycoL 3350 17 GM POWD.PACK PO SCH (08:09)
[2021-03-16] MEDS: Cholecalciferol (D-3) 1,000 UNIT (25MCG) TABLET PO SCH (08:10)
[2021-03-16] MEDS: *HR* Rivaroxaban 10 MG TABLET PO SCH (16:39)
[2021-03-16] MEDS: Insulin DETEMIR 100 UNIT/ML X5UNITS SUBQ SCH (20:42)
[2021-03-16] MEDS: cloNIDine HCL 0.1 MG TABLET PO SCH (20:42)
[2021-03-17 07:31] LABS: Calcium 9.6 mg/dL (8.6-10.3); Potassium 3.9 mEq/L (3.5-5.1)
[2021-03-17] MEDS: Famotidine 20 MG TABLET PO SCH (08:33)
[2021-03-17] MEDS: Insulin LISPRO 300 UNITS/3 ML VIAL SUBQ SCH ×4 (08:33→21:10)
[2021-03-17] MEDS: Cholecalciferol (D-3) 1,000 UNIT (25MCG) TABLET PO SCH (08:33)
[2021-03-17] MEDS: Torsemide 20 MG TABLET PO SCH (08:34)
[2021-03-17] MEDS: Magnesium Oxide 400 MG TABLET PO SCH (08:34)
[2021-03-17] MEDS: polyethylene glycoL 3350 17 GM POWD.PACK PO SCH (08:34)
[2021-03-17] MEDS: Cyanocobalamin (B-12) 1,000 MCG TABLET PO SCH (08:34)
[2021-03-17] MEDS ORDERED: Furosemide 40 MG/4 ML VIAL IVP ONE (10:16)
[2021-03-17] MEDS: Albumin 25% 25gram/100mL 25 GM/100 ML IV.SOLN IVPB SCH (17:19)
[2021-03-17] MEDS: *HR* Rivaroxaban 10 MG TABLET PO SCH (17:19)
[2021-03-17] MEDS: cloNIDine HCL 0.1 MG TABLET PO SCH (21:09)
[2021-03-17] MEDS: Insulin DETEMIR 100 UNIT/ML X5UNITS SUBQ SCH (21:10)
[2021-03-18] MEDS: Albumin 25% 25gram/100mL 25 GM/100 ML IV.SOLN IVPB SCH ×3 (00:07→16:32)
[2021-03-18 03:32] LABS: Calcium 9.7 mg/dL (8.6-10.3); Potassium 3.7 mEq/L (3.5-5.1)
[2021-03-18] MEDS: Insulin LISPRO 300 UNITS/3 ML VIAL SUBQ SCH ×4 (08:07→20:33)
[2021-03-18] MEDS: Cholecalciferol (D-3) 1,000 UNIT (25MCG) TABLET PO SCH (08:11)
[2021-03-18] MEDS: Magnesium Oxide 400 MG TABLET PO SCH (08:12)
[2021-03-18] MEDS: Famotidine 20 MG TABLET PO SCH (08:12)
[2021-03-18] MEDS: Torsemide 20 MG TABLET PO SCH (08:12)
[2021-03-18] MEDS: Cyanocobalamin (B-12) 1,000 MCG TABLET PO SCH (08:12)
[2021-03-18] MEDS: polyethylene glycoL 3350 17 GM POWD.PACK PO SCH (08:16)
[2021-03-18] MEDS ORDERED: Furosemide 40 MG/4 ML VIAL IVP ONE (11:04)
[2021-03-18 13:45] LABS: ABG Base Excess 7 mEq/L (-2 to 3); ABG HCO3 34 mEq/L (21-27); ABG Oxygen Saturation 95 % (95-98); ABG PCO2 54 mmHg (35-45); ABG PO2 75 mmHg (85-104); ABG TCO2 35 mEq/L (20-26)
[2021-03-18] MEDS: cloNIDine HCL 0.1 MG TABLET PO SCH (20:45)
[2021-03-18] MEDS: Insulin DETEMIR 100 UNIT/ML X5UNITS SUBQ SCH (20:45)
[2021-03-19 05:00] LABS: Basophils # 0.1 K/mcL (0.0-0.2); Basophils % 0.5 %; Eosinophils # 0.4 K/mcL (0.0-0.6); Eosinophils % 2.6 %; Hematocrit 35.2 % (35.3-44.9); Hemoglobin 10.5 g/dL (11.5-15.4); Immature Granulocytes % 0.6 % (0-4); Lymphocytes # 0.6 K/mcL (0.6-4.6); Lymphocytes % 4.4 %; Mean Corpuscular HGB Conc 29.8 g/dL (31.6-35.5); Mean Corpuscular Hemoglobin 29.4 pg (28.0-33.3); Mean Corpuscular Volume 98.6 fL (83.0-100.0); Mean Platelet Volume 10.1 fL (9.4-12.4); Monocytes % 7.2 %; Neutrophils # 11.9 K/mcL (1.6-8.9); Platelet Count 159 K/mcL (140-400); Red Blood Count 3.57 M/mcL (3.82-4.97); Red Cell Distribution Width 18.6 % (11.5-14.5); Segmented Neutrophils % 84.7 %
[2021-03-19 05:07] LABS: Calcium 10.1 mg/dL (8.6-10.3); Potassium 3.8 mEq/L (3.5-5.1)
[2021-03-19] MEDS: Dextrose Gel 15 GM/37.5 ML TUBE PO PRN ×2 (08:02→08:52)
[2021-03-19] MEDS: polyethylene glycoL 3350 17 GM POWD.PACK PO SCH (08:37)
[2021-03-19] MEDS: Cyanocobalamin (B-12) 1,000 MCG TABLET PO SCH (08:38)
[2021-03-19] MEDS: Famotidine 20 MG TABLET PO SCH (08:38)
[2021-03-19] MEDS: Magnesium Oxide 400 MG TABLET PO SCH (08:38)
[2021-03-19] MEDS: Torsemide 20 MG TABLET PO SCH (08:38)
[2021-03-19] MEDS: Cholecalciferol (D-3) 1,000 UNIT (25MCG) TABLET PO SCH (08:38)
[2021-03-19] MEDS: Insulin LISPRO 300 UNITS/3 ML VIAL SUBQ SCH ×4 (08:39→20:48)
[2021-03-19] MEDS ORDERED: *HR* Heparin 10,000 UNIT/10 ML VIAL IV PRN (09:48)
[2021-03-19] MEDS ORDERED: 0.9 % Sodium Chloride 250 ML IVC PRN (09:48)
[2021-03-19] MEDS ORDERED: 0.9 % Sodium Chloride 1,000 ML PRIME SCH (10:00)
[2021-03-19 11:26] LABS: Hepatitis B Surface Antibody < 3.10 mIU/mL
[2021-03-19 11:37] LABS: Hepatitis B Surface Antigen Nonreactive (Nonreactive)
[2021-03-19] MEDS ORDERED: Heparin 1,000 UNITS/500 mL 500 ML ONE (12:51)
[2021-03-19] MEDS ORDERED: Lidocaine/EPI 1:100k 1% 50 ML VIAL ONE (12:51)
[2021-03-19] MEDS ORDERED: *HR* Heparin 5,000 UNIT/ML VIAL ONE (13:51)
[2021-03-19] MEDS ORDERED: *HR* Heparin 5,000 UNIT/ML VIAL IVP PRN ×2 (14:33)
[2021-03-19] MEDS ORDERED: *HR* Heparin 5,000 UNIT/ML VIAL IVP ONE ×3 (14:36→19:30)
[2021-03-19] MEDS: Piperacillin/Tazobactam 3.375 GM in 0.9 % Sodium Chloride Mini Bag 100 ML IVPB SCH ×2 (14:41→22:47)
[2021-03-19 17:11] LABS: Hematocrit 34.8 % (35.3-44.9); Hemoglobin 10.8 g/dL (11.5-15.4); Mean Corpuscular Hemoglobin 30.5 pg (28.0-33.3); Mean Corpuscular Volume 98.3 fL (83.0-100.0); Mean Platelet Volume 9.7 fL (9.4-12.4); Platelet Count 153 K/mcL (140-400); Red Blood Count 3.54 M/mcL (3.82-4.97); Red Cell Distribution Width 18.5 % (11.5-14.5); White Blood Count 26.8 K/mcL (4.3-11.1)
[2021-03-19 17:25] LABS: Heparin anti-factor XA UFH 0.31 IU/mL (0.30-0.70); INR 1.7; Prothrombin Time 19.7 Seconds (9.4-12.1)
[2021-03-19] MEDS: Heparin 25,000UNIT/250ML 1/2NS 25,000 UNIT/250 ML IV.SOLN IVC SCH (18:02)
[2021-03-19] MEDS: cloNIDine HCL 0.1 MG TABLET PO SCH (20:36)
[2021-03-19] MEDS: Insulin DETEMIR 100 UNIT/ML X5UNITS SUBQ SCH (22:47)
[2021-03-20 01:14] LABS: Hematocrit 33.3 % (35.3-44.9); Hemoglobin 10.2 g/dL (11.5-15.4); Mean Corpuscular HGB Conc 30.6 g/dL (31.6-35.5); Mean Corpuscular Hemoglobin 30.1 pg (28.0-33.3); Mean Corpuscular Volume 98.2 fL (83.0-100.0); Platelet Count 156 K/mcL (140-400); Red Blood Count 3.39 M/mcL (3.82-4.97); Red Cell Distribution Width 18.6 % (11.5-14.5); White Blood Count 21.2 K/mcL (4.3-11.1)
[2021-03-20 01:32] LABS: Calcium 9.5 mg/dL (8.6-10.3); Potassium 4.1 mEq/L (3.5-5.1)
[2021-03-20] MEDS: Famotidine 20 MG TABLET PO SCH (07:47)
[2021-03-20] MEDS: Insulin LISPRO 300 UNITS/3 ML VIAL SUBQ SCH ×4 (07:47→20:41)
[2021-03-20] MEDS: Cholecalciferol (D-3) 1,000 UNIT (25MCG) TABLET PO SCH (07:48)
[2021-03-20] MEDS: Cyanocobalamin (B-12) 1,000 MCG TABLET PO SCH (07:48)
[2021-03-20] MEDS: Magnesium Oxide 400 MG TABLET PO SCH (07:48)
[2021-03-20] MEDS: polyethylene glycoL 3350 17 GM POWD.PACK PO SCH (07:55)
[2021-03-20] MEDS ORDERED: 0.9 % Sodium Chloride 250 ML IVC PRN (09:00)
[2021-03-20] MEDS ORDERED: 0.9 % Sodium Chloride 1,000 ML PRIME SCH (09:00)
[2021-03-20] MEDS ORDERED: *HR* Heparin 10,000 UNIT/10 ML VIAL IV PRN (09:00)
[2021-03-20] MEDS: Piperacillin/Tazobactam 3.375 GM in 0.9 % Sodium Chloride Mini Bag 100 ML IVPB SCH ×2 (11:46→23:08)
[2021-03-20] MEDS: Heparin 25,000UNIT/250ML 1/2NS 25,000 UNIT/250 ML IV.SOLN IVC SCH (13:18)
[2021-03-20] MEDS: Insulin DETEMIR 100 UNIT/ML X5UNITS SUBQ SCH (20:40)
[2021-03-20] MEDS: cloNIDine HCL 0.1 MG TABLET PO SCH (20:40)
[2021-03-21 01:38] LABS: Hematocrit 31.6 % (35.3-44.9); Hemoglobin 9.6 g/dL (11.5-15.4); Mean Corpuscular HGB Conc 30.4 g/dL (31.6-35.5); Mean Corpuscular Hemoglobin 30.5 pg (28.0-33.3); Mean Corpuscular Volume 100.3 fL (83.0-100.0); Mean Platelet Volume 9.6 fL (9.4-12.4); Platelet Count 151 K/mcL (140-400); Red Blood Count 3.15 M/mcL (3.82-4.97); Red Cell Distribution Width 18.6 % (11.5-14.5); White Blood Count 11.5 K/mcL (4.3-11.1)
[2021-03-21 01:54] LABS: Calcium 8.9 mg/dL (8.6-10.3); Potassium 4.1 mEq/L (3.5-5.1)
[2021-03-21] MEDS: Famotidine 20 MG TABLET PO SCH (07:45)
[2021-03-21] MEDS: Cholecalciferol (D-3) 1,000 UNIT (25MCG) TABLET PO SCH (07:45)
[2021-03-21] MEDS: Magnesium Oxide 400 MG TABLET PO SCH (07:47)
[2021-03-21] MEDS: Cyanocobalamin (B-12) 1,000 MCG TABLET PO SCH (07:48)
[2021-03-21] MEDS: Insulin LISPRO 300 UNITS/3 ML VIAL SUBQ SCH ×4 (07:48→20:27)
[2021-03-21] MEDS: polyethylene glycoL 3350 17 GM POWD.PACK PO SCH (07:48)
[2021-03-21] MEDS ORDERED: 0.9 % Sodium Chloride 250 ML IVC PRN (07:57)
[2021-03-21] MEDS ORDERED: *HR* Heparin 10,000 UNIT/10 ML VIAL IV PRN (07:57)
[2021-03-21] MEDS: Heparin 25,000UNIT/250ML 1/2NS 25,000 UNIT/250 ML IV.SOLN IVC SCH (10:46)
[2021-03-21] MEDS: Piperacillin/Tazobactam 3.375 GM in 0.9 % Sodium Chloride Mini Bag 100 ML IVPB SCH ×2 (12:54→23:42)
[2021-03-21] MEDS: Insulin DETEMIR 100 UNIT/ML X5UNITS SUBQ SCH (20:32)
[2021-03-21] MEDS: cloNIDine HCL 0.1 MG TABLET PO SCH (20:32)
[2021-03-22 02:15] LABS: Hematocrit 33.8 % (35.3-44.9); Mean Corpuscular HGB Conc 29.6 g/dL (31.6-35.5); Mean Corpuscular Hemoglobin 29.7 pg (28.0-33.3); Mean Corpuscular Volume 100.3 fL (83.0-100.0); Mean Platelet Volume 9.3 fL (9.4-12.4); Platelet Count 161 K/mcL (140-400); Red Blood Count 3.37 M/mcL (3.82-4.97); Red Cell Distribution Width 18.5 % (11.5-14.5); White Blood Count 12.1 K/mcL (4.3-11.1)
[2021-03-22 02:33] LABS: Calcium 8.9 mg/dL (8.6-10.3); Potassium 4.2 mEq/L (3.5-5.1)
[2021-03-22] MEDS: Insulin LISPRO 300 UNITS/3 ML VIAL SUBQ SCH ×4 (07:22→20:25)
[2021-03-22] MEDS: polyethylene glycoL 3350 17 GM POWD.PACK PO SCH (08:25)
[2021-03-22] MEDS: Magnesium Oxide 400 MG TABLET PO SCH (08:26)
[2021-03-22] MEDS: Famotidine 20 MG TABLET PO SCH (08:26)
[2021-03-22] MEDS: Cyanocobalamin (B-12) 1,000 MCG TABLET PO SCH (08:28)
[2021-03-22] MEDS: Cholecalciferol (D-3) 1,000 UNIT (25MCG) TABLET PO SCH (08:28)
[2021-03-22] MEDS ORDERED: Heparin 1,000 UNITS/500 mL 500 ML ONE ×2 (09:36→11:30)
[2021-03-22] MEDS ORDERED: Lidocaine/EPI 1:100k 1% 50 ML VIAL ONE ×2 (09:36→11:30)
[2021-03-22] MEDS ORDERED: 0.9 % Sodium Chloride 500 ML ONE ×2 (09:41→11:56)
[2021-03-22] MEDS ORDERED: *HR* FentaNYL (PF) 100 MCG/2 ML VIAL IVP ONE (12:08)
[2021-03-22] MEDS ORDERED: *HR* Midazolam HCl 2 MG/2 ML VIAL IVP ONE (12:08)
[2021-03-22] MEDS ORDERED: CeFAZolin 2,000MG/50ML DUPLEX 2,000 MG/50 ML BAG IVPB ONE (12:08)
[2021-03-22] MEDS ORDERED: *HR* FentaNYL (PF) 100 MCG/2 ML VIAL ONE (12:09)
[2021-03-22] MEDS ORDERED: *HR* Midazolam HCl 2 MG/2 ML VIAL ONE (12:09)
[2021-03-22] MEDS ORDERED: *HR* Heparin 5,000 UNIT/ML VIAL ONE (12:22)
[2021-03-22] MEDS: Piperacillin/Tazobactam 3.375 GM in 0.9 % Sodium Chloride Mini Bag 100 ML IVPB SCH (17:41)
[2021-03-22] MEDS: cloNIDine HCL 0.1 MG TABLET PO SCH (20:24)
[2021-03-22] MEDS: Apixaban 5 MG TABLET PO SCH (20:24)
[2021-03-22] MEDS: Insulin DETEMIR 100 UNIT/ML X5UNITS SUBQ SCH (20:25)
[2021-03-23 02:14] LABS: Hematocrit 34.1 % (35.3-44.9); Hemoglobin 10.3 g/dL (11.5-15.4); Mean Corpuscular HGB Conc 30.2 g/dL (31.6-35.5); Mean Corpuscular Hemoglobin 30.3 pg (28.0-33.3); Mean Corpuscular Volume 100.3 fL (83.0-100.0); Mean Platelet Volume 9.4 fL (9.4-12.4); Platelet Count 173 K/mcL (140-400); Red Cell Distribution Width 18.5 % (11.5-14.5); White Blood Count 9.5 K/mcL (4.3-11.1)
[2021-03-23 02:34] LABS: Calcium 9.1 mg/dL (8.6-10.3); Potassium 4.1 mEq/L (3.5-5.1)
[2021-03-23] MEDS: Piperacillin/Tazobactam 3.375 GM in 0.9 % Sodium Chloride Mini Bag 100 ML IVPB SCH ×2 (05:19→15:52)
[2021-03-23] MEDS: *HR* OxyCODONE Immed Rel 5 MG TABLET PO PRN ×2 (05:47→15:53)
[2021-03-23] MEDS ORDERED: 0.9 % Sodium Chloride 250 ML IVC PRN (07:46)
[2021-03-23] MEDS ORDERED: *HR* Heparin 10,000 UNIT/10 ML VIAL IV PRN (07:46)
[2021-03-23] MEDS: Famotidine 20 MG TABLET PO SCH (07:58)
[2021-03-23] MEDS: Cholecalciferol (D-3) 1,000 UNIT (25MCG) TABLET PO SCH (07:58)
[2021-03-23] MEDS ORDERED: 0.9 % Sodium Chloride 1,000 ML PRIME SCH (08:00)
[2021-03-23] MEDS: Apixaban 5 MG TABLET PO SCH ×2 (08:00→20:03)
[2021-03-23] MEDS: Magnesium Oxide 400 MG TABLET PO SCH (08:00)
[2021-03-23] MEDS: Cyanocobalamin (B-12) 1,000 MCG TABLET PO SCH (08:00)
[2021-03-23] MEDS: polyethylene glycoL 3350 17 GM POWD.PACK PO SCH (08:26)
[2021-03-23] MEDS: Insulin LISPRO 300 UNITS/3 ML VIAL SUBQ SCH ×4 (12:02→20:05)
[2021-03-23] MEDS: Acetaminophen 325 MG TABLET PO PRN ×2 (13:04→21:14)
[2021-03-23] MEDS: cloNIDine HCL 0.1 MG TABLET PO SCH (20:03)
[2021-03-23] MEDS: Insulin DETEMIR 100 UNIT/ML X5UNITS SUBQ SCH (20:05)
[2021-03-24] MEDS: Piperacillin/Tazobactam 3.375 GM in 0.9 % Sodium Chloride Mini Bag 100 ML IVPB SCH ×2 (04:14→15:36)
[2021-03-24] MEDS: *HR* OxyCODONE Immed Rel 5 MG TABLET PO PRN (04:17)
[2021-03-24 05:13] LABS: Hematocrit 36.6 % (35.3-44.9); Hemoglobin 10.6 g/dL (11.5-15.4); Mean Corpuscular Hemoglobin 29.6 pg (28.0-33.3); Mean Corpuscular Volume 102.2 fL (83.0-100.0); Mean Platelet Volume 9.7 fL (9.4-12.4); Platelet Count 152 K/mcL (140-400); Red Blood Count 3.58 M/mcL (3.82-4.97); Red Cell Distribution Width 18.4 % (11.5-14.5)
[2021-03-24] MEDS: polyethylene glycoL 3350 17 GM POWD.PACK PO SCH (08:25)
[2021-03-24] MEDS: Magnesium Oxide 400 MG TABLET PO SCH (08:26)
[2021-03-24] MEDS: Famotidine 20 MG TABLET PO SCH (08:26)
[2021-03-24] MEDS: Cyanocobalamin (B-12) 1,000 MCG TABLET PO SCH (08:26)
[2021-03-24] MEDS: Apixaban 5 MG TABLET PO SCH ×2 (08:27→20:19)
[2021-03-24] MEDS: Cholecalciferol (D-3) 1,000 UNIT (25MCG) TABLET PO SCH (08:27)
[2021-03-24] MEDS: Insulin LISPRO 300 UNITS/3 ML VIAL SUBQ SCH ×4 (08:28→20:20)
[2021-03-24] MEDS: cloNIDine HCL 0.1 MG TABLET PO SCH (20:19)
[2021-03-24] MEDS: Insulin DETEMIR 100 UNIT/ML X5UNITS SUBQ SCH (20:20)
[2021-03-25] MEDS: Piperacillin/Tazobactam 3.375 GM in 0.9 % Sodium Chloride Mini Bag 100 ML IVPB SCH (04:01)
[2021-03-25] MEDS ORDERED: 0.9 % Sodium Chloride 250 ML IVC PRN (07:59)
[2021-03-25] MEDS ORDERED: *HR* Heparin 10,000 UNIT/10 ML VIAL IV PRN (07:59)
[2021-03-25] MEDS ORDERED: 0.9 % Sodium Chloride 1,000 ML PRIME SCH (08:00)
[2021-03-25] MEDS: Cholecalciferol (D-3) 1,000 UNIT (25MCG) TABLET PO SCH (08:12)
[2021-03-25] MEDS: Famotidine 20 MG TABLET PO SCH ×2 (08:14→16:49)
[2021-03-25] MEDS: Apixaban 5 MG TABLET PO SCH ×2 (08:14→20:18)
[2021-03-25] MEDS: Magnesium Oxide 400 MG TABLET PO SCH (08:15)
[2021-03-25] MEDS: Cyanocobalamin (B-12) 1,000 MCG TABLET PO SCH (08:15)
[2021-03-25] MEDS: polyethylene glycoL 3350 17 GM POWD.PACK PO SCH ×2 (08:15→16:50)
[2021-03-25 08:53] LABS: Hematocrit 34.6 % (35.3-44.9); Hemoglobin 10.2 g/dL (11.5-15.4); Mean Corpuscular HGB Conc 29.5 g/dL (31.6-35.5); Mean Corpuscular Hemoglobin 29.3 pg (28.0-33.3); Mean Corpuscular Volume 99.4 fL (83.0-100.0); Mean Platelet Volume 9.4 fL (9.4-12.4); Platelet Count 140 K/mcL (140-400); Red Blood Count 3.48 M/mcL (3.82-4.97); Red Cell Distribution Width 18.3 % (11.5-14.5); White Blood Count 9.9 K/mcL (4.3-11.1)
[2021-03-25 09:13] LABS: Calcium 9.3 mg/dL (8.6-10.3); Potassium 4.1 mEq/L (3.5-5.1)
[2021-03-25] MEDS: Insulin LISPRO 300 UNITS/3 ML VIAL SUBQ SCH ×4 (09:42→20:18)
[2021-03-25] MEDS ORDERED: Amoxicillin/Clavulanate 500 MG TABLET PO SCH (17:00)
[2021-03-25 17:29] LABS: Adenovirus Not Detected (Not Detect); Bordetella Pertussis Not Detected (Not Detect); Chlamydophila pneumoniae Not Detected (Not Detect); Coronavirus 229E Not Detected (Not Detect); Coronavirus HKU1 Not Detected (Not Detect); Coronavirus NL63 Not Detected (Not Detect); Coronavirus OC43 Not Detected (Not Detect); Human Metapneumovirus Not Detected (Not Detect); Human Rhinovirus/Enterovirus Not Detected (Not Detect); Influenza A Subtype 2009 H1 Not Detected (Not Detect); Influenza B Not Detected (Not Detect); Mycoplasma pneumoniae Not Detected (Not Detect); Parainfluenza Virus 1 Not Detected (Not Detect); Parainfluenza Virus 2 Not Detected (Not Detect); Parainfluenza Virus 3 Not Detected (Not Detect); Parainfluenza Virus 4 Not Detected (Not Detect); Respiratory Syncytial Virus Not Detected (Not Detect); SARS-CoV-2 Not Detected (Not Detect)
[2021-03-25 18:39] VITALS: BP 124/77; PULSE 83; TEMP 98.3; O2SAT 94
[2021-03-25] MEDS: cloNIDine HCL 0.1 MG TABLET PO SCH (20:18)
[2021-03-25] MEDS: Insulin DETEMIR 100 UNIT/ML X5UNITS SUBQ SCH (20:19)
== END 2021-03-25 20:29 | DRG 673 ==
LOC: EMEROOARM 18:38 → 2ANU 18:38 → SUATTDRO 22:41 → 2ANU 23:25 → SUATTDRO 03-14 18:28
PROVIDERS: ADMIT Family Medicine; ATTEND Family Medicine
PROC: IRPERMA (2021-03-22 13:00)

== ENCOUNTER 2021-12-15 23:20 | Inpatient (IN) ==
[2021-12-16 00:01] LABS: Basophils # 0.1 K/mcL (0.0-0.2); Basophils % 0.8 %; Eosinophils # 0.2 K/mcL (0.0-0.6); Eosinophils % 1.9 %; Hematocrit 31.6 % (35.3-44.9); Hemoglobin 9.9 g/dL (11.5-15.4); Immature Granulocytes % 0.8 % (0-4); Lymphocytes # 0.8 K/mcL (0.6-4.6); Lymphocytes % 8.3 %; Mean Corpuscular HGB Conc 31.3 g/dL (31.6-35.5); Mean Corpuscular Hemoglobin 34.5 pg (28.0-33.3); Mean Corpuscular Volume 110.1 fL (83.0-100.0); Mean Platelet Volume 9.7 fL (9.4-12.4); Monocytes # 0.8 K/mcL (0.0-1.3); Monocytes % 8.3 %; Neutrophils # 8.1 K/mcL (1.6-8.9); Nucleated Red Blood Cells 0.9 /100 WBC (0); Platelet Count 228 K/mcL (140-400); Red Blood Count 2.87 M/mcL (3.82-4.97); Red Cell Distribution Width 14.5 % (11.5-14.5); Segmented Neutrophils % 79.9 %; White Blood Count 10.1 K/mcL (4.3-11.1)
[2021-12-16 00:22] LABS: Albumin 3.4 g/dL (3.5-5.7); Albumin/Globulin Ratio 0.8 (1.1-2.2); Bilirubin,Total 0.7 mg/dL (0.3-1.0); Calcium 9.1 mg/dL (8.6-10.3); Globulin 4.3 g/dL (2.4-3.5); Magnesium 2.8 mg/dL (1.6-2.6); Potassium 5.9 mEq/L (3.5-5.1); Total Protein 7.7 g/dL (6.4-8.9); Troponin I 0.03 ng/mL (< 0.04)
[2021-12-16] MEDS ORDERED: *HR* Dextrose 50 % in Water (Vial) 50 ML VIAL IVP ONE (00:25)
[2021-12-16] MEDS ORDERED: Insulin Human Regular 5 UNIT in 0.9 % Sodium Chloride 10 ML IV ONE (00:25)
[2021-12-16] MEDS ORDERED: Albuterol Neb 7.5 MG, Sodium Chloride for inhalation 12 ML IH ONE (00:25)
[2021-12-16] MEDS ORDERED: Ondansetron 4 MG/2 ML VIAL IVP PRN (02:10)
[2021-12-16] MEDS ORDERED: Naloxone 0.4 MG/ML INJ IVP PRN (02:10)
[2021-12-16] MEDS ORDERED: *HR* Dextrose 50 % in Water (Syg) 50 ML SYRINGE IVP PRN (02:33)
[2021-12-16] MEDS ORDERED: D5% in Water 1,000 ML IVC PRN (02:33)
[2021-12-16] MEDS ORDERED: Dextrose 4 GM Chewable Tablets PO PRN ×2 (02:33)
[2021-12-16] MEDS: Insulin LISPRO 300 UNITS/3 ML VIAL SUBQ SCH ×3 (05:35→18:46)
[2021-12-16 06:09] LABS: Influenza A PCR Negative (Negative); Influenza B PCR Negative (Negative); Resp. Syncytial Virus PCR Negative (Negative)
[2021-12-16 06:10] LABS: SARS-CoV-2 by PCR (In House) Negative (Negative)
[2021-12-16] MEDS: SODIUM ZIRCONIUM CYCLOSILICATE 5 GM POWD.PACK PO SCH (08:06)
[2021-12-16] MEDS ORDERED: *HR* Heparin 10,000 UNIT/10 ML VIAL IV PRN (09:31)
[2021-12-16] MEDS ORDERED: 0.9 % Sodium Chloride 250 ML IVC PRN (09:31)
[2021-12-16] MEDS ORDERED: 0.9 % Sodium Chloride 1,000 ML PRIME SCH (09:45)
[2021-12-16 10:47] LABS: Calcium 9.1 mg/dL (8.6-10.3); Magnesium 2.8 mg/dL (1.6-2.6); Phosphorous 9.9 mg/dL (2.7-4.5); Potassium 5.5 mEq/L (3.5-5.1)
[2021-12-16 10:58] LABS: Hematocrit 27.4 % (35.3-44.9); Hemoglobin 8.7 g/dL (11.5-15.4); Hepatitis B Surface Antibody < 3.10 mIU/mL; Mean Corpuscular HGB Conc 31.8 g/dL (31.6-35.5); Mean Corpuscular Hemoglobin 34.3 pg (28.0-33.3); Mean Corpuscular Volume 107.9 fL (83.0-100.0); Platelet Count 174 K/mcL (140-400); Red Blood Count 2.54 M/mcL (3.82-4.97); Red Cell Distribution Width 14.5 % (11.5-14.5); White Blood Count 8.7 K/mcL (4.3-11.1)
[2021-12-16 11:09] LABS: Hepatitis B Surface Antigen Nonreactive (Nonreactive)
[2021-12-16 11:16] LABS: Estimated Average Glucose 177 mg/dl; Hemoglobin A1C 7.8 %
[2021-12-16] MEDS ORDERED: Albumin 25% 25gram/100mL 25 GM/100 ML IV.SOLN IVPB ONE ×2 (11:27→20:01)
[2021-12-16] MEDS: Acetaminophen 325 MG TABLET PO PRN (22:29)
[2021-12-17] MEDS: Insulin LISPRO 300 UNITS/3 ML VIAL SUBQ SCH ×4 (01:20→16:52)
[2021-12-17 02:05] LABS: Basophils # 0.1 K/mcL (0.0-0.2); Basophils % 0.6 %; Eosinophils # 0.2 K/mcL (0.0-0.6); Eosinophils % 2.9 %; Hematocrit 25.6 % (35.3-44.9); Immature Granulocytes % 0.4 % (0-4); Lymphocytes # 0.7 K/mcL (0.6-4.6); Lymphocytes % 8.1 %; Mean Corpuscular HGB Conc 31.3 g/dL (31.6-35.5); Mean Corpuscular Volume 108.9 fL (83.0-100.0); Monocytes # 0.7 K/mcL (0.0-1.3); Monocytes % 9.2 %; Neutrophils # 6.4 K/mcL (1.6-8.9); Nucleated Red Blood Cells 0.6 /100 WBC (0); Platelet Count 115 K/mcL (140-400); Red Blood Count 2.35 M/mcL (3.82-4.97); Red Cell Distribution Width 14.8 % (11.5-14.5); Segmented Neutrophils % 78.8 %; White Blood Count 8.1 K/mcL (4.3-11.1)
[2021-12-17 02:22] LABS: Magnesium 2.3 mg/dL (1.6-2.6); Phosphorous 5.2 mg/dL (2.7-4.5)
[2021-12-17 02:23] LABS: Calcium 8.6 mg/dL (8.6-10.3); Potassium 4.4 mEq/L (3.5-5.1)
[2021-12-17] MEDS: Albumin 25% 25gram/100mL 25 GM/100 ML IV.SOLN IVPB SCH ×2 (08:45→15:43)
[2021-12-17] MEDS: Cholecalciferol (D-3) 1,000 UNIT (25MCG) TABLET PO SCH (08:45)
[2021-12-17] MEDS: Cyanocobalamin (B-12) 1,000 MCG TABLET PO SCH (08:45)
[2021-12-17] MEDS: SODIUM ZIRCONIUM CYCLOSILICATE 5 GM POWD.PACK PO SCH (08:46)
[2021-12-17] MEDS ORDERED: *HR* Dextrose 50 % in Water (Syg) 50 ML SYRINGE IVP PRN (09:00)
[2021-12-17] MEDS ORDERED: D5% in Water 1,000 ML IVC PRN (09:00)
[2021-12-17] MEDS ORDERED: Dextrose 4 GM Chewable Tablets PO PRN ×2 (09:00)
[2021-12-17] MEDS: Apixaban 5 MG TABLET PO SCH ×2 (10:40→20:13)
[2021-12-17] MEDS: Vitamin B Complex/Vit C/Vit E 1 EACH TABLET PO SCH (10:40)
[2021-12-17] MEDS: Insulin DETEMIR 100 UNIT/ML X5UNITS SUBQ SCH (20:13)
[2021-12-17] MEDS: Acetaminophen 325 MG TABLET PO PRN (20:14)
[2021-12-18] MEDS: Albumin 25% 25gram/100mL 25 GM/100 ML IV.SOLN IVPB SCH (00:08)
[2021-12-18 06:01] LABS: Basophils # 0.1 K/mcL (0.0-0.2); Basophils % 0.8 %; Eosinophils # 0.3 K/mcL (0.0-0.6); Eosinophils % 4.5 %; Hematocrit 26.9 % (35.3-44.9); Hemoglobin 8.2 g/dL (11.5-15.4); Immature Granulocytes % 0.6 % (0-4); Lymphocytes # 0.8 K/mcL (0.6-4.6); Lymphocytes % 11.4 %; Mean Corpuscular HGB Conc 30.5 g/dL (31.6-35.5); Mean Corpuscular Hemoglobin 33.7 pg (28.0-33.3); Mean Corpuscular Volume 110.7 fL (83.0-100.0); Mean Platelet Volume 10.1 fL (9.4-12.4); Monocytes # 0.7 K/mcL (0.0-1.3); Monocytes % 10.2 %; Nucleated Red Blood Cells 0.6 /100 WBC (0); Platelet Count 117 K/mcL (140-400); Red Blood Count 2.43 M/mcL (3.82-4.97); Segmented Neutrophils % 72.5 %; White Blood Count 7.1 K/mcL (4.3-11.1)
[2021-12-18 06:09] LABS: Neutrophils # 5.2 K/mcL (1.6-8.9)
[2021-12-18 06:29] LABS: Calcium 9.3 mg/dL (8.6-10.3); Magnesium 2.5 mg/dL (1.6-2.6); Phosphorous 6.8 mg/dL (2.7-4.5); Potassium 4.7 mEq/L (3.5-5.1)
[2021-12-18 06:46] LABS: Hypochromasia Present (Not Present); Macrocytosis Present (Not Present); Platelet Estimate Decreased (Normal)
[2021-12-18 06:47] LABS: Polychromasia 1+ (Not Present)
[2021-12-18] MEDS ORDERED: 0.9 % Sodium Chloride 250 ML IVC PRN (08:26)
[2021-12-18] MEDS ORDERED: *HR* Heparin 10,000 UNIT/10 ML VIAL IV PRN (08:26)
[2021-12-18] MEDS: Cholecalciferol (D-3) 1,000 UNIT (25MCG) TABLET PO SCH (08:36)
[2021-12-18] MEDS: Vitamin B Complex/Vit C/Vit E 1 EACH TABLET PO SCH (08:36)
[2021-12-18] MEDS: SODIUM ZIRCONIUM CYCLOSILICATE 5 GM POWD.PACK PO SCH (08:36)
[2021-12-18] MEDS: Apixaban 5 MG TABLET PO SCH ×2 (08:37→20:27)
[2021-12-18] MEDS: Insulin LISPRO 300 UNITS/3 ML VIAL SUBQ SCH ×3 (08:37→17:09)
[2021-12-18] MEDS: Cyanocobalamin (B-12) 1,000 MCG TABLET PO SCH (08:37)
[2021-12-18] MEDS: Insulin DETEMIR 100 UNIT/ML X5UNITS SUBQ SCH (20:28)
[2021-12-19] MEDS ORDERED: Nystatin POWDER 30 GM BOTTLE TP SCH ×2 (03:00→09:00)
[2021-12-19 04:35] LABS: Basophils # 0.1 K/mcL (0.0-0.2); Basophils % 0.8 %; Eosinophils # 0.4 K/mcL (0.0-0.6); Eosinophils % 3.5 %; Hematocrit 25.3 % (35.3-44.9); Hemoglobin 7.9 g/dL (11.5-15.4); Immature Granulocytes % 0.6 % (0-4); Lymphocytes # 0.8 K/mcL (0.6-4.6); Lymphocytes % 8.1 %; Mean Corpuscular HGB Conc 31.2 g/dL (31.6-35.5); Mean Corpuscular Hemoglobin 34.2 pg (28.0-33.3); Mean Corpuscular Volume 109.5 fL (83.0-100.0); Mean Platelet Volume 9.6 fL (9.4-12.4); Monocytes # 0.9 K/mcL (0.0-1.3); Monocytes % 9.1 %; Neutrophils # 7.7 K/mcL (1.6-8.9); Nucleated Red Blood Cells 0.4 /100 WBC (0); Platelet Count 107 K/mcL (140-400); Red Blood Count 2.31 M/mcL (3.82-4.97); Red Cell Distribution Width 15.9 % (11.5-14.5); Segmented Neutrophils % 77.9 %; White Blood Count 9.9 K/mcL (4.3-11.1)
[2021-12-19 04:50] LABS: Magnesium 2.1 mg/dL (1.6-2.6); Potassium 3.8 mEq/L (3.5-5.1)
[2021-12-19 07:28] VITALS: BP 112/67; PULSE 61; TEMP 97.7; O2SAT 92
[2021-12-19] MEDS: Insulin LISPRO 300 UNITS/3 ML VIAL SUBQ SCH ×2 (07:32→11:57)
[2021-12-19] MEDS: Cyanocobalamin (B-12) 1,000 MCG TABLET PO SCH (07:59)
[2021-12-19] MEDS: Apixaban 5 MG TABLET PO SCH (07:59)
[2021-12-19] MEDS: Cholecalciferol (D-3) 1,000 UNIT (25MCG) TABLET PO SCH (07:59)
[2021-12-19] MEDS: Vitamin B Complex/Vit C/Vit E 1 EACH TABLET PO SCH (07:59)
[2021-12-19 11:37] LABS: Influenza A PCR Negative (Negative); Influenza B PCR Negative (Negative); Resp. Syncytial Virus PCR Negative (Negative)
[2021-12-19 11:38] LABS: SARS-CoV-2 by PCR (In House) Negative (Negative)
== END 2021-12-19 12:54 | DRG 640 ==
LOC: 2ANU 23:20 → EMEROOARM 23:20 → SUATTDRO 12-16 01:46 → 2ANU 12-16 03:02 → SUATTDRO 12-17 14:51
PROVIDERS: ADMIT Internal Medicine; ATTEND Internal Medicine

== ENCOUNTER 2022-03-16 14:41 | Inpatient (IN) ==
[2022-03-16] MEDS ORDERED: Calcium Gluconate 1,000 MG/10 ML VIAL IVP ONE (14:58)
[2022-03-16 15:12] LABS: Basophils # 0.1 K/mcL (0.0-0.2); Basophils % 0.8 %; Eosinophils # 0.5 K/mcL (0.0-0.6); Eosinophils % 5.5 %; Hematocrit 35.5 % (35.3-44.9); Hemoglobin 11.1 g/dL (11.5-15.4); Immature Granulocytes % 0.4 % (0-4); Lymphocytes # 1.1 K/mcL (0.6-4.6); Lymphocytes % 11.4 %; Mean Corpuscular HGB Conc 31.3 g/dL (31.6-35.5); Mean Corpuscular Hemoglobin 33.7 pg (28.0-33.3); Mean Corpuscular Volume 107.9 fL (83.0-100.0); Mean Platelet Volume 9.2 fL (9.4-12.4); Monocytes # 0.8 K/mcL (0.0-1.3); Monocytes % 8.6 %; Neutrophils # 6.8 K/mcL (1.6-8.9); Platelet Count 166 K/mcL (140-400); Red Blood Count 3.29 M/mcL (3.82-4.97); Red Cell Distribution Width 13.8 % (11.5-14.5); Segmented Neutrophils % 73.3 %; White Blood Count 9.3 K/mcL (4.3-11.1)
[2022-03-16 15:20] LABS: INR 1.1; Prothrombin Time 12.4 Seconds (9.4-12.1)
[2022-03-16 15:48] LABS: Albumin 3.7 g/dL (3.5-5.7); Bilirubin,Total 0.4 mg/dL (0.3-1.0); Calcium 9.4 mg/dL (8.6-10.3); Globulin 3.7 g/dL (2.4-3.5); Magnesium 3.1 mg/dL (1.6-2.6); Potassium 7.8 mEq/L (3.5-5.1); Total Protein 7.4 g/dL (6.4-8.9); Troponin I 0.06 ng/mL (< 0.04)
[2022-03-16] MEDS ORDERED: Insulin Human Regular 10 UNIT in 0.9 % Sodium Chloride 10 ML IV ONE ×2 (15:52→19:22)
[2022-03-16] MEDS ORDERED: *HR* Dextrose 50 % in Water (Syg) 50 ML SYRINGE IVP ONE ×2 (15:52→19:23)
[2022-03-16 16:37] LABS: VBG HCO3 28 mEq/L (21-27); VBG PCO2 59 mmHg (41-51); VBG PH 7.29 pH Units (7.32-7.42); VBG PO2 56 mmHg (25-50)
[2022-03-16 18:22] LABS: Calcium 9.4 mg/dL (8.6-10.3); Potassium 7.8 mEq/L (3.5-5.1)
[2022-03-16] MEDS ORDERED: Melatonin 3 MG TABLET PO PRN (19:58)
[2022-03-16] MEDS ORDERED: Acetaminophen 325 MG TABLET PO PRN (19:58)
[2022-03-16] MEDS ORDERED: Naloxone 0.4 MG/ML INJ IVP PRN (19:58)
[2022-03-16] MEDS ORDERED: 0.9 % Sodium Chloride 250 ML IVC PRN (20:09)
[2022-03-16] MEDS ORDERED: *HR* Heparin 10,000 UNIT/10 ML VIAL IV PRN (20:20)
[2022-03-16] MEDS ORDERED: 0.9 % Sodium Chloride 2,000 ML PRIME SCH (20:30)
[2022-03-16 22:41] LABS: Calcium 9.1 mg/dL (8.6-10.3); Potassium 6.7 mEq/L (3.5-5.1)
[2022-03-17 01:09] VITALS: TEMP 96.9
[2022-03-17 01:12] LABS: Hepatitis B Surface Antibody 3.37 mIU/mL
[2022-03-17 02:07] VITALS: O2SAT 96
[2022-03-17 02:51] VITALS: BP 139/110; PULSE 83
[2022-03-17 03:18] LABS: Hepatitis B Surface Antigen Nonreactive (Nonreactive)
== END 2022-03-17 04:28 | disposition short-term general hospital (02) | DRG 640 ==
LOC: EMEROOARM 14:41 → 2NNU 14:41 → OBSVTOIN 20:03 → ICNU 20:15
PROVIDERS: ADMIT Internal Medicine; ATTEND Internal Medicine